=== PATIENT | male | born 1980 | race Caucasian/White ===

== ENCOUNTER 2016-07-27 13:54 | Outpatient (RCR) | payer OTHER | END 2016-10-25 | LOC: WSOH | DX: S96.911A Strain of unspecified muscle and tendon at ankle and foot level, right foot, initial encounter (principal); X58.XXXA Exposure to other specified factors, initial encounter; Y99.0 Civilian activity done for income or pay ==

== ENCOUNTER → 2016-07-27 | Outpatient (REF) | LOC: WSOH 14:05 | DX: Z02.89 Encounter for other administrative examinations (principal) ==